=== PATIENT | female | born 1995 | race American Indian/Alaskan Native ===

== ENCOUNTER 2017-03-24 18:10 | Outpatient (CLI) | payer MEDICAID ==
[2017-03-24 19:01] VITALS: BP 132/68
--- NOTE | 2017-03-24 21:40 | Event Note ---
Date: 03/24/17 Patient presents to L&D at 39 weeks, 6 days gestation to rule out labor. Patient states she has been having contractions all day. She denies leaking of fluid or vaginal bleeding. Patient reports baby is moving well. Patient missed her last visit and has missed several appts. She also saw [facility] during this but did not follow up as she was supposed to do. She reports a history of elevated hemoglobin A1C during the but cannot recall any other problems with the . SVE per RN is 1/thick/posterior/cephalic. Irregular contractions. Patient is not in active labor at this time. BPP is 8/ 8. TANK is normal. Patient requests to be scheduled for induction of labor this week. Patient put on schedule for IOL this week. Advised patient she needs to keep her appt. at the office and also advised her to continue daily movement counting. Warning signs of late discussed with patient.
--- NOTE | 2017-03-25 07:43 | Ultrasound Report ---
LIMITED OB ULTRASOUND: well-being. Gestation: Lopez Position: Cephalic TANK = 11.3 cm Placenta: Anterior Placental Grade: 1 Heart Rate: 143 BPM Estimated age is 40 weeks. BIOPHYSICAL PROFILE: 2 - breathing movements 2 - movements 2 - posture and tone 2 - Qualitative amniotic fluid volume 8 - TOTAL SCORE OF POSSIBLE 8 Heart Rate (bpm) 143
== END 2017-03-24 21:29 | disposition home or self-care (01) ==
LOC: TRG 18:10
PROVIDERS: ATTEND Obstetrics & Gynecology
DX: O62.9 Abnormality of forces of labor, unspecified (principal); O48.0 Post-term pregnancy; Z3A.40 40 weeks gestation of pregnancy
CPT/HCPCS: 76815; 76819

== ENCOUNTER 2017-03-26 08:15 | Observation (INO) | payer MEDICAID ==
[2017-03-26 11:49] VITALS: BP 137/83
== END 2017-03-26 13:45 | disposition home or self-care (01) ==
LOC: LD 08:15 → INTOOBSV 08:15
PROVIDERS: ADMIT Obstetrics & Gynecology; ATTEND Obstetrics & Gynecology
DX: O48.0 Post-term pregnancy (principal); Z3A.40 40 weeks gestation of pregnancy
CPT/HCPCS: 59025; G0378; G0379

== ENCOUNTER 2017-04-01 10:03 | Inpatient (IN) | payer MEDICAID ==
[2017-04-01] MEDS ORDERED: BRETHINE IVP PRN (12:13)
[2017-04-01] MEDS ORDERED: MINERAL OIL PO PRN (12:13)
[2017-04-01] MEDS ORDERED: XYLOCAINE 2% INFILTRATI ONE (12:13)
[2017-04-01] MEDS ORDERED: ePHEDrine SULFATE IV PRN ×2 (12:13→15:57)
[2017-04-01] MEDS ORDERED: STADOL IV PRN (12:13)
[2017-04-01] MEDS ORDERED: BRETHINE SUB-Q PRN (12:29)
[2017-04-01] MEDS ORDERED: PITOCin/NS 30 UNIT/500ML 30 UNITS/500 ML BAG IV SCH (13:00)
[2017-04-01] MEDS: LACTATED RINGERS 1,000 ML IV SCH ×3 (13:07→19:34)
[2017-04-01] MEDS ORDERED: POLYCILLIN/NS 2 GM/100 ML 2 GM/100 ML BAG IV ONE (13:13)
[2017-04-01] MEDS: PITOCin/NS 30 UNIT/500ML 30 UNITS/500 ML BAG IV SCH (13:17)
[2017-04-01 13:31] LABS: Hematocrit 27.3 % (30.3-42.9); Hemoglobin 8.5 gm/dl (10.1-14.3); Mean Corpuscular HGB Conc 31 % (30-34); Mean Corpuscular Volume 70 fl (79-97); Platelet Count 190 K/mm3 (140-440); Red Blood Count 3.89 M/mm3 (3.65-5.03); Red Cell Distribution Width 16.5 % (13.2-15.2); White Blood Count 8.3 K/mm3 (4.5-11.0)
[2017-04-01 13:48] LABS: Mean Corpuscular Hemoglobin 22 pg (28-32)
--- NOTE | 2017-04-01 14:33 | History and Physical Report ---
History of Present Illness Date of examination: 04/01/17 Date of admission: 04/01/17 11:44 Chief complaint: Abdominal Pain History of present illness: Here with c/o painful contractions for the past 2 days associated with occasional spotting. She denies LOF and reports positive FMs. She started her care @ 23w4d and has only had 4 visits. Her is complicated by anemia and low vit D. She is on ferrous sulfate 325mg TID and vit D supplement. She was treated for BV and VVC at her 1st appt. She denies any abnormal vaginal symptoms today. 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 smear (11/30/16) Family/Genetic History: none Social history: single, lives with family - Obstetrical History Expected Date of Delivery: 03/25/17 Actual Gestation: 41 Week(s) 0 Day(s) : 4 Para: 3 Hx # Term Pregnancies: 0 Number of Pregnancies: 0 Spontaneous Abortions: 0 Induced : 0 Number of Living Children: 3 Medications and Allergies Allergies Allergy/AdvReac Type Severity Reaction Status Date / Time tomato [Tomato] Allergy Swelling Verified 04/13/13 14:33 Home Medications Medication Instructions Recorded Confirmed Last Taken Type Vit37/Iron/Folic Acid 1 each PO DAILY 12/14/13 04/01/17 1 Day Ago History [Prenata Chewable Tablet] ~03/31/17 Active Meds: Active Medications Butorphanol Tartrate (Stadol) 2 mg IV Q2H PRN PRN Reason: Pain , Severe (7-10) Ephedrine Sulfate (Ephedrine Sulfate) 10 mg IV Q2M PRN PRN Reason: Hypotension Lactated Ringer's (Lactated Ringers) 1,000 mls @ 125 mls/hr IV DIRECT YASMINE Last Admin: 04/01/17 13:07 Dose: 125 mls/hr Oxytocin/Sodium Chloride (Pitocin/Ns 20 Unit/1000ml Drip) 20 units in 1,000 mls @ 125 mls/hr IV DIRECT YASMINE Oxytocin/Sodium Chloride (Pitocin/Ns 30 Unit/500ml) 30 units in 500 mls @ 1 mls /hr IV TITR YASMINE; 1 MILLIUNITS/MIN PRN Reason: Protocol Last Titration: 04/01/17 14:04 Dose: 4 milliunits/min, 4 mls/hr Oxytocin/Sodium Chloride (Pitocin/Ns 30 Unit/500ml) 30 units in 500 mls @ 0 mls /hr IV TITR YASMINE; As Directed PRN Reason: Protocol Ampicillin Sodium (Polycillin/Ns 1 Gm/50 Ml) 1 gm in 50 mls @ 100 mls/hr IV Q4H YASMINE PRN Reason: Protocol Mineral Oil (Mineral Oil) 30 ml PO QHS PRN PRN Reason: Constipation Terbutaline Sulfate (Brethine) 0.25 mg SUB-Q ONCE PRN PRN Reason: Hyperstimulation/Hypertonicity Terbutaline Sulfate (Brethine) 0.25 mg IVP ONCE PRN PRN Reason: Hyperstimulation/Hypertonicity Review of Systems All systems: negative - Vital Signs Vital signs: Vital Signs Pulse Pulse Ox 91 H 99 04/01/17 10:27 04/01/17 10:27 Temp Pulse Resp BP Pulse Ox 98.5 F 83 20 126/72 100 04/01/17 13:09 04/01/17 14:24 04/01/17 13:09 04/01/17 14:17 04/01/17 14:24 - Physical Exam Breasts: Positive: deferred Cardiovascular: Regular rate, Normal S1, Normal S2 Lungs: Positive: Clear to auscultation, Normal air movement Abdomen: Positive: normal appearance, soft Genitourinary (Female): Positive: normal external genitalia, normal perenium Vulva: both: normal Vagina: Positive: normal moisture Uterus: Positive: normal size, normal contour Anus/Rectum: Positive: normal perianal skin Extremities: Positive: normal Deep Tendon Reflex Grade: Normal +2 - Obstetrical FHR: category 2 FHR comments: baseline 130, moderate variability with occasional minimal variability, accels present, no decels Uterine Contraction Monitor Mode: External Cervical Dilatation: 2.5 (per RN) Cervical Effacement Percentage: 70 (per RN) station: -3 (per RN) Uterine Contraction Frequency (min): irregular Results Result Diagrams: 04/01/17 12:55 Abnormal lab results 04/01/17 Range/Units 12:55 Hgb 8.5 L (10.1-14.3) gm/dl Hct 27.3 L (30.3-42.9) % MCV 70 L (79-97) fl MCH 22 L (28-32) pg RDW 16.5 H (13.2-15.2) % All other labs normal. Assessment and Plan A: 21yo G 4 P 3 0 0 3 @ 41 weeks 0 day by LMP Postdates Insufficient Care Latent Labor GBS positive Anemia of P: Admit for IOL with Pitocin Start antibiotics for GBS prophylaxis Anticipate vaginal delivery
[2017-04-01] MEDS ORDERED: fentaNYL-BUPIV 2 MCG/ML-0.125% 200 MCG/100 ML BAG EPIDURAL ONE (15:39)
[2017-04-01] MEDS ORDERED: NARCAN 2 MG/2 ML IV PRN (15:57)
--- NOTE | 2017-04-01 15:57 | Anesthesia Consultation ---
Anesthesia Consult and Med Hx Date of service: 04/01/17 - Airway Anesthetic Teeth Evaluation: Good ROM Head & Neck: Adequate Mental/Hyoid Distance: Adequate Mallampati Class: Class II Intubation Access Assessment: Probably Good - Pre-Operative Health Status ASA Pre-Surgery Classification: ASA2 Proposed Anesthetic Plan: Epidural, Spinal - Pulmonary Hx Asthma: No COPD: No Hx Pneumonia: No - Cardiovascular System Hx Hypertension: No - Central Nervous System Hx Seizures: No Hx Psychiatric Problems: No - Endocrine Hx Renal Disease: No Hx End Stage Renal Disease: No Hx Non-Insulin Dependent Diabetes: Yes (h/o GDM) Hx Hypothyroidism: No Hx Hyperthyroidism: No - Hematic Hx Anemia: Yes Hx Sickle Cell Disease: No - Other Systems Hx Alcohol Use: No
[2017-04-01] MEDS: fentaNYL-BUPIV 2 MCG/ML-0.125% 200 MCG/100 ML BAG EPIDURAL SCH (16:37)
[2017-04-01] MEDS: POLYCILLIN/NS 1 GM/50 ML 1 GM/50 ML BAG IV SCH ×2 (17:10→21:04)
--- NOTE | 2017-04-01 19:13 | Event Note ---
Date: 04/01/17 S: Pt in left lateral position. Pain well controlled. O: FHR baseline 130, minimal variability with periods of absent variability, positive scalp stimutaion, occ early & variable decels Ctxs q2-4mins SVE 6/90/-1/vtx/bbow AROM @ 16:35, light mec A: Category II FHR Active Labor Epidural in place P: IV fluid bolus, Oxygen via nonrebreather mask, position changes [id number], discontinue Pitocin Anticipate vaginal delivery
[2017-04-02] MEDS: fentaNYL-BUPIV 2 MCG/ML-0.125% 200 MCG/100 ML BAG EPIDURAL SCH (00:14)
[2017-04-02] MEDS ORDERED: XYLOCAINE 2% INFILTRATI ONE (00:50)
[2017-04-02] MEDS: POLYCILLIN/NS 1 GM/50 ML 1 GM/50 ML BAG IV SCH (01:00)
[2017-04-02] MEDS: PITOCin/NS 30 UNIT/500ML 30 UNITS/500 ML BAG IV SCH (01:27)
[2017-04-02] MEDS: PITOCin/NS 20 UNIT/1000ML DRIP 20 UNITS/1,000 ML BAG IV SCH ×2 (02:45→04:14)
[2017-04-02] MEDS ORDERED: ZOFRAN IV PRN (03:11)
[2017-04-02] MEDS ORDERED: LANSINOH TP PRN (03:11)
[2017-04-02] MEDS ORDERED: TYLENOL PO PRN (03:11)
[2017-04-02] MEDS ORDERED: DULCOLAX PR PRN (03:11)
[2017-04-02] MEDS ORDERED: TUCKS PAD TP PRN (03:11)
[2017-04-02] MEDS ORDERED: PHENERGAN PR PRN (03:11)
[2017-04-02] MEDS ORDERED: NORCO 5/325 PO PRN (03:11)
[2017-04-02] MEDS ORDERED: BENADRYL PO PRN (03:11)
[2017-04-02] MEDS ORDERED: PHENERGAN PO PRN (03:11)
[2017-04-02] MEDS ORDERED: MILK OF MAGNESIA PO PRN (03:11)
[2017-04-02] MEDS ORDERED: DIFLUCAN PO ONE (03:15)
--- NOTE | 2017-04-02 03:40 | Procedure Note ---
OB Delivery Note - Delivery Date of Delivery: 04/02/17 (02:45) Estimated blood loss: 200cc - Vaginal Delivery presentation: vertex Delivery position: OA Intrapartum events: meconium Delivery induction: oxytocin Delivery augmentation: rupture of membranes Delivery monitor: external FHT, external uterine Route of delivery: Delivery placenta: spontaneous Delivery cord: other (cord around body. Reduced after delivery) Episiotomy: none Delivery laceration: vaginal side wall (hemostatic) Anesthesia: epidural Delivery comments: of a less vigorous 8lbs 0oz female at 02:45 with NICU team in the room and Dr. Bey in attendance. Baby with a strong cry after mouth and nose suctioned with a bulb syringe and later dried. Baby placed [id number] to maternal abdomen. Cord clamping delayed x3 mins. Cord double-clamped & cut by a family member and was later taken to the warmer by a NICU cylinder steamer. Placenta spontaneously delivered @ 02:55. Fundal massage & IV Pitocin bolus initiated. Fundus F/ML/U-2. Small lochia noted. Cord blood collected. Left vaginal side wall abrasion noted. Was hemostatic so not repaired. Placenta intact and was discarded. Mom and baby in stable condition. - Infant A at 1 minute: 8 at 5 minutes: 9 Infant Gender: Female
[2017-04-02] MEDS ORDERED: SODIUM CHLORIDE FLUSH SYRINGE 10 ML IV NR (04:00)
[2017-04-02] MEDS: MOTRIN PO SCH ×3 (06:03→17:54)
[2017-04-02 06:25] LABS: Hematocrit 26.6 % (30.3-42.9); Hemoglobin 8.2 gm/dl (10.1-14.3); Mean Corpuscular HGB Conc 31 % (30-34); Mean Corpuscular Volume 73 fl (79-97); Platelet Count 168 K/mm3 (140-440); Red Blood Count 3.66 M/mm3 (3.65-5.03); Red Cell Distribution Width 16.5 % (13.2-15.2); White Blood Count 15.8 K/mm3 (4.5-11.0)
[2017-04-02 06:38] LABS: Mean Corpuscular Hemoglobin 22 pg (28-32)
[2017-04-02 06:47] LABS: Alanine Aminotransferase 9 units/L (7-56)
[2017-04-02 06:54] LABS: Lactate Dehydrogenase 191 units/L (91-180); Uric Acid 5.1 mg/dL (3.5-7.6)
[2017-04-02 08:58] LABS: Bacteria,Urine 1+ /HPF (Negative); Bilirubin,Urine NEG (Negative); Blood,Urine LG (Negative); Ketones,Urine NEG (Negative); Leukocyte Esterase,Urine MOD (Negative); Nitrite,Urine NEG (Negative); Urobilinogen,Urine < 2.0 mg/dL (<2.0)
[2017-04-02 16:03] LABS: Hematocrit 25.3 % (30.3-42.9); Hemoglobin 7.8 gm/dl (10.1-14.3)
[2017-04-03] MEDS: MOTRIN PO SCH ×4 (00:20→18:37)
[2017-04-03] MEDS ORDERED: INFED IM ONE (11:26)
[2017-04-03] MEDS ORDERED: DEPO-PROVERA (CONTRACEPTION) IM ONE (11:27)
--- NOTE | 2017-04-03 11:29 | Progress Note ---
Assessment and Plan A: PP Day #1 Asymptomatic Anemia P: Follow Routine orders Ferrous Sulfate 325mg PO TID; continue at home Infed 100mg IM x 1 dose Depo Provera prior to discharge D/C home in the AM RTO in 6 Weeks Subjective - Subjective Date of service: 04/03/17 Patient reports: appetite normal, voiding normally, pain well controlled, flatus , ambulating normally : doing well Objective - Vital Signs Latest vital signs: Vital Signs Temp Pulse Resp BP BP Pulse Ox 04/03/17 08:19 98.3 F 74 117/51 100 04/03/17 00:40 98.3 F 98 H 18 112/63 98 04/02/17 16:32 98.2 F 98 H 20 123/69 100 04/02/17 11:55 98.1 F 92 H 18 135/78 100 Intake and Output 04/02/17 04/03/17 04/03/17 22:59 06:59 14:59 Intake Total 480 120 Balance 480 120 Intake: Oral 480 120 Other: Total, Intake Amount 480 120 # Voids Void 1 1 - Exam Breasts: Present: normal Cardiovascular: Present: Regular rate Lungs: Present: Clear to auscultation, Normal air movement Abdomen: Present: normal appearance, soft, normal bowel sounds Uterus: Present: normal, firm, fundal height below umbilicus Extremities: Present: normal - Labs Labs: Abnormal lab results 04/02/17 Range/Units 15:51 Hgb 7.8 L (10.1-14.3) gm/dl Hct 25.3 L (30.3-42.9) %
--- NOTE | 2017-04-03 11:30 | Discharge Summary ---
Providers - Providers Date of Admission: 04/01/17 11:44 Date of discharge: 04/04/17 Attending physician: HALEIGH LAZAR MD Primary care physician: HALEIGH LAZAR MD Hospitalization Reason for admission: active labor Delivery: Episiotomy: none Laceration: none Other procedures: none complications: none Discharge diagnosis: IUP at term delivered [place] baby: female Condition at discharge: Good Disposition: DC-01 TO HOME OR SELFCARE Plan - Provider Discharge Summary Activity: routine, no sex for 6 weeks, no heavy lifting 4 weeks, no strenuous exercise Diet: routine Instructions: routine Additional instructions: [] Smoking cessation referral if applicable(refer to patient education folder for contact #) [] Refer to [facility] Booklet Call your doctor immediately for: * Fever > 100.5 * Heavy vaginal bleeding ( >1 pad per hour) * Severe persistent headache * Shortness of breath * Reddened, hot, painful area to leg or breast * Drainage or odor from incision. * Keep incision clean and dry at all times and follow doctor's instructions regarding bathing/showering - Follow up plan Follow up: HALEIGH LAZAR MD [Primary Care Provider] - 6 Weeks
[2017-04-03] MEDS: FEOSOL PO SCH ×2 (13:55→21:33)
[2017-04-04] MEDS: MOTRIN PO SCH ×3 (05:32→13:44)
[2017-04-04] MEDS: FEOSOL PO SCH (10:29)
[2017-04-04 15:54] VITALS: BP 121/78
== END 2017-04-04 15:30 | disposition home or self-care (01) | DRG 775 ==
LOC: TRG 10:03 → LD 11:44 → OB 04-02 06:29
PROVIDERS: ADMIT Obstetrics & Gynecology; ATTEND Obstetrics & Gynecology
PROC: 10E0XZZ Delivery of Products of Conception, External Approach (ICD-10-PCS; principal; 2017-04-02)
PROC: 3E033VJ Introduction of Other Hormone into Peripheral Vein, Percutaneous Approach (ICD-10-PCS; 2017-04-02)
PROC: 3E0R3BZ Introduction of Anesthetic Agent into Spinal Canal, Percutaneous Approach (ICD-10-PCS; 2017-04-02)
PROC: 00HU33Z Insertion of Infusion Device into Spinal Canal, Percutaneous Approach (ICD-10-PCS; 2017-04-02)
DX: O48.0 Post-term pregnancy (principal); O99.824 Streptococcus B carrier state complicating childbirth; O99.02 Anemia complicating childbirth; Z3A.41 41 weeks gestation of pregnancy; Z37.0 Single live birth; Z91.018 Allergy to other foods; D64.9 Anemia, unspecified; O77.0 Labor and delivery complicated by meconium in amniotic fluid; O69.89X0 Labor and delivery complicated by other cord complications, not applicable or unspecified; O71.4 Obstetric high vaginal laceration alone
CPT/HCPCS: 36415; 81001; 82565; 83615; 84450; 84460; 84550; 85014; 85018; 85027; 86592; 86850; 86900; 86901; J0290; J0595; J1750; J2590; J7120

== ENCOUNTER 2018-02-14 09:22 | Emergency (ER) | payer MEDICAID ==
--- NOTE | 2018-02-14 10:22 | Emergency Department Report ---
ED Female HPI - General Chief complaint: Abdominal Pain Stated complaint: ABD PAIN Time Seen by Provider: 02/14/18 10:03 Source: patient Mode of arrival: Ambulatory Limitations: No Limitations - History of Present Illness Initial comments: 22-year-old female presents to ED with abdominal pain. Patient states pain began last night, located in suprapubic area. Patient reports white vaginal discharge with a slight odor. Patient denies dysuria, urinary frequency, hematuria. MD Complaint: vaginal discharge -: Last night Location: suprapubic Radiation: non-radiating Severity: mild Quality: cramping Consistency: intermittent Improves with: none Worsens with: none Associated Symptoms: vaginal discharge, abdominal pain. denies: nausea/vomiting , fever/chills, dysuria, hematuria - Related Data Home Medications Medication Instructions Recorded Confirmed Last Taken Vit37/Iron/Folic Acid 1 each PO DAILY 12/14/13 04/01/17 1 Day Ago [Prenata Chewable Tablet] ~03/31/17 Previous Rx's Medication Instructions Recorded Last Taken Type Naproxen [Naprosyn] 500 mg PO BID PRN #20 tablet 02/14/18 Unknown Rx Allergies Allergy/AdvReac Type Severity Reaction Status Date / Time tomato [Tomato] Allergy Swelling Verified 02/14/18 09:32 ED Review of Systems ROS: Stated complaint: ABD PAIN Other details as noted in HPI Comment: All other systems reviewed and negative Constitutional: denies: fever Gastrointestinal: abdominal pain. denies: nausea, vomiting Genitourinary: discharge. denies: dysuria, frequency, hematuria ED Past Medical Hx - Past Medical History Previous Medical History?: No Hx Hypertension: No Hx Congestive Heart Failure: No Hx Diabetes: No Hx Deep Vein Thrombosis: No Hx Renal Disease: No Hx Sickle Cell Disease: No Hx Seizures: No Hx Asthma: No Hx COPD: No Hx HIV: No - Surgical History Additional Surgical History: hernia repair - Social History Smoking Status: Never Smoker Substance Use Type: None - Medications Home Medications: Home Medications Medication Instructions Recorded Confirmed Last Taken Type Vit37/Iron/Folic Acid 1 each PO DAILY 12/14/13 04/01/17 1 Day Ago History [Prenata Chewable Tablet] ~03/31/17 Naproxen [Naprosyn] 500 mg PO BID PRN #20 tablet 02/14/18 Unknown Rx ED Physical Exam - General Limitations: No Limitations General appearance: alert, in no apparent distress - Head Head exam: Present: atraumatic, normocephalic - Eye Eye exam: Present: normal appearance - ENT ENT exam: Present: mucous membranes moist - Neck Neck exam: Present: normal inspection - Respiratory Respiratory exam: Present: normal lung sounds bilaterally. Absent: respiratory distress - Cardiovascular Cardiovascular Exam: Present: regular rate, normal rhythm - GI/Abdominal GI/Abdominal exam: Present: soft. Absent: tenderness - External exam: Present: normal external exam Speculum exam: Present: vaginal discharge (yellow), cervical discharge. Absent : vaginal bleeding, foreign body Bi-manual exam: Present: normal bi-manual exam. Absent: cervical motion tendernes - Extremities Exam Extremities exam: Present: normal inspection - Neurological Exam Neurological exam: Present: alert, oriented X3 - Psychiatric Psychiatric exam: Present: normal affect, normal mood - Skin Skin exam: Present: warm, dry, intact, normal color ED Course Vital Signs 02/14/18 02/14/18 09:32 13:12 Temperature 99 F 98.4 F Pulse Rate 82 78 Respiratory 18 19 Rate Blood Pressure 129/50 Blood Pressure 122/72 [Right] O2 Sat by Pulse 100 99 Oximetry ED Medical Decision Making - Differential Diagnosis UTI, , vaginitis, cervicitis, PID Critical care attestation.: If time is entered above; I have spent that time in minutes in the direct care of this critically ill patient, excluding procedure time. ED Disposition Clinical Impression: Cervicitis Disposition: DC-01 TO HOME OR SELFCARE Is pt being admited?: No Condition: Stable Instructions: Cervicitis (ED) Prescriptions: Naproxen [Naprosyn] 500 mg PO BID PRN #20 tablet PRN Reason: pain Referrals: [facility] [Outside] - 3-5 Days BERNARDINO LU [Staff Physician] - 3-5 Days [facility] [Provider Group] - 3-5 Days [facility] [Outside] - 3-5 Days Forms: STI Treatment and Prevention Time of Disposition: 11:54
[2018-02-14 10:48] LABS: Bilirubin,Urine NEG (Negative); Blood,Urine SM (Negative); Color,Urine Yellow (Yellow); Mucus,Urine 3+ /HPF; Urobilinogen,Urine < 2.0 mg/dL (<2.0)
[2018-02-14 10:49] LABS: HCG Qualitative,Urine Negative (Negative)
[2018-02-14] MEDS ORDERED: ROCEPHIN IM ONE (11:27)
[2018-02-14] MEDS ORDERED: ZITHROMAX PO ONE (11:27)
[2018-02-14] MEDS ORDERED: XYLOCAINE 1% MPF 5 mL INFILTRATI ONE (11:27)
[2018-02-14 13:15] VITALS: BP 122/72
== END 2018-02-14 13:12 | disposition home or self-care (01) ==
LOC: ED 09:22
DX: N72 Inflammatory disease of cervix uteri (principal); Z91.018 Allergy to other foods
CPT/HCPCS: 81001; 81025; 87210; 87591; 96372; 99284; J0696

== ENCOUNTER 2018-11-24 15:08 | Emergency (ER) | payer MEDICAID, OTHER ==
[2018-11-24] MEDS ORDERED: IBUPROFEN PO ONE (16:32)
--- NOTE | 2018-11-24 18:06 | Emergency Department Report ---
ED General Adult HPI - General Chief complaint: Weakness Stated complaint: PASSED OUT/VAGINAL IRRITATION Time Seen by Provider: 11/24/18 16:31 Source: patient Mode of arrival: Ambulatory Limitations: No Limitations - History of Present Illness Initial comments: 23-year-old female comes in complaining of vaginal irritation 2 days. She denies any vaginal bleeding vaginal discharge. Last menstrual period was 10/27/2018. She is 4 para 4. Onset/Timin -: days(s) - Related Data Home Medications Medication Instructions Recorded Confirmed Last Taken Vit37/Iron/Folic Acid 1 each PO DAILY 12/14/13 04/01/17 1 Day Ago [Prenata Chewable Tablet] ~03/31/17 Previous Rx's Medication Instructions Recorded Last Taken Type Naproxen [Naprosyn] 500 mg PO BID PRN #20 tablet 02/14/18 Unknown Rx Sulfamethoxazole/Trimethoprim 1 each PO BID #10 tablet 04/04/18 Unknown Rx [Bactrim DS TAB] metroNIDAZOLE [Metronidazole] 500 mg PO BID #14 tablet 04/04/18 Unknown Rx Acyclovir [Zovirax Tab] 400 mg PO Q8H #21 tab 11/24/18 Unknown Rx Nitrofurantoin [place]/M-Cryst 100 mg PO Q12HR #20 capsule 11/24/18 Unknown Rx [Macrobid CAP] Vit-Fe Fumar-FA [ 1 tab PO QDAY #90 tablet 11/24/18 Unknown Rx Vitamin] Allergies Allergy/AdvReac Type Severity Reaction Status Date / Time tomato [Tomato] Allergy Swelling Verified 11/24/18 15:10 ED Review of Systems ROS: Stated complaint: PASSED OUT/VAGINAL IRRITATION Other details as noted in HPI ED Past Medical Hx - Past Medical History Hx Hypertension: No Hx Congestive Heart Failure: No Hx Diabetes: No Hx Deep Vein Thrombosis: No Hx Renal Disease: No Hx Sickle Cell Disease: No Hx Seizures: No Hx Asthma: No Hx COPD: No Hx HIV: No - Surgical History Additional Surgical History: hernia repair - Social History Smoking Status: Never Smoker Substance Use Type: None - Medications Home Medications: Home Medications Medication Instructions Recorded Confirmed Last Taken Type Vit37/Iron/Folic Acid 1 each PO DAILY 12/14/13 04/01/17 1 Day Ago History [Prenata Chewable Tablet] ~03/31/17 Naproxen [Naprosyn] 500 mg PO BID PRN #20 tablet 02/14/18 Unknown Rx Sulfamethoxazole/Trimethoprim 1 each PO BID #10 tablet 04/04/18 Unknown Rx [Bactrim DS TAB] metroNIDAZOLE [Metronidazole] 500 mg PO BID #14 tablet 04/04/18 Unknown Rx Acyclovir [Zovirax Tab] 400 mg PO Q8H #21 tab 11/24/18 Unknown Rx Nitrofurantoin [place]/M-Cryst 100 mg PO Q12HR #20 capsule 11/24/18 Unknown Rx [Macrobid CAP] Vit-Fe Fumar-FA [ 1 tab PO QDAY #90 tablet 11/24/18 Unknown Rx Vitamin] ED Physical Exam - General Limitations: No Limitations General appearance: alert, in no apparent distress - Head Head exam: Present: atraumatic, normocephalic - ENT ENT exam: Present: mucous membranes moist - External exam: Present: swelling, lesions - Back Exam Back exam: Present: normal inspection - Neurological Exam Neurological exam: Present: alert, oriented X3, normal gait - Psychiatric Psychiatric exam: Present: normal affect, normal mood ED Course Vital Signs 11/24/18 11/24/18 15:42 16:42 Temperature 100.0 F H Pulse Rate 107 H Respiratory 16 18 Rate Blood Pressure 118/70 O2 Sat by Pulse 100 Oximetry ED Medical Decision Making - Medical Decision Making 23-year-old female comes in complaining of vaginal irritation 2 days. She denies any vaginal bleeding vaginal discharge. Last menstrual period was 10/27/2018. She is 4 para 4. Patient has a positive test and positive urinary tract infection. Patient will be placed on Macrobid acyclovir for concern for herpes and vitamins for positive test. Patient referred to [facility]. Critical care attestation.: If time is entered above; I have spent that time in minutes in the direct care of this critically ill patient, excluding procedure time. ED Disposition Clinical Impression: Lesion of labia, Positive test UTI (urinary tract infection) Qualifiers: Urinary tract infection type: site unspecified Hematuria presence: without hematuria Qualified Code(s): N39.0 - Urinary tract infection, site not specified Disposition: - TO HOME OR SELFCARE Is pt being admited?: No Does the pt Need Aspirin: No Condition: Stable Instructions: Genital Herpes Simplex (ED) Additional Instructions: Please complete anti-viral medication as prescribed. It's very important for her to follow up with her primary care provider as I recommend being screened for herpes 1 and 2. Please take ibuprofen for pain management. Prescriptions: Nitrofurantoin [place]/M-Cryst [Macrobid CAP] 100 mg PO Q12HR #20 capsule Vit-Fe Fumar-FA [ Vitamin] 1 tab PO QDAY #90 tablet Acyclovir [Zovirax Tab] 400 mg PO Q8H #21 tab Referrals: SUPRIYA TIWARI MD [Primary Care Provider] - 3-5 Days
[2018-11-24 18:14] LABS: Bacteria,Urine 1+ /HPF (Negative); Bilirubin,Urine NEG (Negative); Blood,Urine MOD (Negative); Color,Urine Yellow (Yellow); Mucus,Urine 3+ /HPF; Urobilinogen,Urine < 2.0 mg/dL (<2.0)
[2018-11-24 18:18] LABS: HCG Qualitative,Urine Positive (Negative)
[2018-11-24 19:08] VITALS: BP 108/78
== END 2018-11-24 19:16 | disposition home or self-care (01) ==
LOC: ED 15:08
DX: O23.41 Unspecified infection of urinary tract in pregnancy, first trimester (principal); Z3A.01 Less than 8 weeks gestation of pregnancy
CPT/HCPCS: 81001; 81025; 87086; 87210; 87591

== ENCOUNTER 2018-12-05 16:41 | Emergency (ER) | payer OTHER ==
--- NOTE | 2018-12-05 18:11 | Event Note ---
ED Screening Note Date of service: 12/05/18 Time: 18:06 ED Screening Note: This is a 23 y.o. F. that presents to the ER with abdominal pain since last night. Recent positive test. LMP 10/10/18, A1 This initial assessment/diagnostic orders/clinical plan/treatment(s) is/are subject to change based on patients health status, clinical progression and re- assessment by fellow clinical providers in the ED. Further treatment and workup at subsequent clinical providers discretion. Patient/guardian urged not to elope from the ED as their condition may be serious if not clinically assessed and managed. Initial orders include: Labs and OB US
--- NOTE | 2018-12-05 18:53 | Emergency Department Report ---
ED Abdominal Pain HPI - General Chief Complaint: Abdominal Pain Stated Complaint: /STOMACH PAIN Time Seen by Provider: 12/05/18 18:06 Source: patient Mode of arrival: Ambulatory Limitations: No Limitations - History of Present Illness Initial Comments: Patient is a 23-year-old female presents to the emergency room with generalized abdominal pain that began last night. She describes it as a cramping sensation. The patient states she is currently . Her last menstrual cycle was in the middle of September. She does not have an CHILD PROTECTIVE INVESTIGATOR. She denies any vaginal bleeding, nausea, vomiting, fever, dysuria. she does not report any vaginal di scharge or vaginal complaints. She denies any past medical history, allergies to medications, complications during her other pregnancies. /P:4/A:1. - Related Data Home Medications Medication Instructions Recorded Confirmed Last Taken Vit37/Iron/Folic Acid 1 each PO DAILY 12/14/13 04/01/17 1 Day Ago [Prenata Chewable Tablet] ~03/31/17 Previous Rx's Medication Instructions Recorded Last Taken Type Naproxen [Naprosyn] 500 mg PO BID PRN #20 tablet 02/14/18 Unknown Rx Sulfamethoxazole/Trimethoprim 1 each PO BID #10 tablet 04/04/18 Unknown Rx [Bactrim DS TAB] metroNIDAZOLE [Metronidazole] 500 mg PO BID #14 tablet 04/04/18 Unknown Rx Acyclovir [Zovirax Tab] 400 mg PO Q8H #21 tab 11/24/18 Unknown Rx Nitrofurantoin Glynn/M-Cryst 100 mg PO Q12HR #20 capsule 11/24/18 Unknown Rx [Macrobid CAP] Vit-Fe Fumar-FA [ 1 tab PO QDAY #90 tablet 11/24/18 Unknown Rx Vitamin] Allergies Allergy/AdvReac Type Severity Reaction Status Date / Time tomato [Tomato] Allergy Swelling Verified 12/05/18 17:13 ED Review of Systems ROS: Stated complaint: /STOMACH PAIN Other details as noted in HPI Comment: All other systems reviewed and negative ED Past Medical Hx - Past Medical History Hx Hypertension: No Hx Congestive Heart Failure: No Hx Diabetes: No Hx Deep Vein Thrombosis: No Hx Renal Disease: No Hx Sickle Cell Disease: No Hx Seizures: No Hx Asthma: No Hx COPD: No Hx HIV: No - Surgical History Additional Surgical History: hernia repair - Social History Smoking Status: Never Smoker Substance Use Type: None - Medications Home Medications: Home Medications Medication Instructions Recorded Confirmed Last Taken Type Vit37/Iron/Folic Acid 1 each PO DAILY 12/14/13 04/01/17 1 Day Ago History [Prenata Chewable Tablet] ~03/31/17 Naproxen [Naprosyn] 500 mg PO BID PRN #20 tablet 02/14/18 Unknown Rx Sulfamethoxazole/Trimethoprim 1 each PO BID #10 tablet 04/04/18 Unknown Rx [Bactrim DS TAB] metroNIDAZOLE [Metronidazole] 500 mg PO BID #14 tablet 04/04/18 Unknown Rx Acyclovir [Zovirax Tab] 400 mg PO Q8H #21 tab 11/24/18 Unknown Rx Nitrofurantoin Glynn/M-Cryst 100 mg PO Q12HR #20 capsule 11/24/18 Unknown Rx [Macrobid CAP] Vit-Fe Fumar-FA [ 1 tab PO QDAY #90 tablet 11/24/18 Unknown Rx Vitamin] ED Physical Exam - General Limitations: No Limitations General appearance: alert, in no apparent distress - Head Head exam: Present: atraumatic, normocephalic - Eye Eye exam: Present: normal appearance - ENT ENT exam: Present: mucous membranes moist - Respiratory Respiratory exam: Present: normal lung sounds bilaterally. Absent: respiratory distress, wheezes, rales, rhonchi, stridor, chest wall tenderness, accessory muscle use, decreased breath sounds, prolonged expiratory - Cardiovascular Cardiovascular Exam: Present: regular rate, normal rhythm, normal heart sounds. Absent: systolic murmur, diastolic murmur, rubs, gallop - GI/Abdominal GI/Abdominal exam: Present: soft, normal bowel sounds. Absent: tenderness, guarding, rebound, rigid - Neurological Exam Neurological exam: Present: alert, oriented X3 - Psychiatric Psychiatric exam: Present: normal affect, normal mood - Skin Skin exam: Present: warm, dry, intact ED Course Vital Signs 12/05/18 12/05/18 18:07 21:23 Temperature 98.8 F Pulse Rate 92 H 78 Respiratory 16 16 Rate Blood Pressure 123/72 Blood Pressure 124/54 [Right] O2 Sat by Pulse 92 100 Oximetry ED Medical Decision Making - Lab Data Result diagrams: 12/05/18 19:43 12/05/18 19:43 Lab Results 12/05/18 12/05/1812/05/19 Range/Units 18:51 19:43 19:43 WBC 7.0 (4.5-11.0) K/mm3 RBC 3.83 (3.65-5.03) M/mm3 Hgb 9.0 L (10.1-14.3) gm/dl Hct 28.2 L (30.3-42.9) % MCV 74 L (79-97) fl MCH 23 L (28-32) pg MCHC 32 (30-34) % RDW 16.5 H (13.2-15.2) % Plt Count 251 (140-440) K/mm3 Lymph % (Auto) 31.2 (13.4-35.0) % Glynn % (Auto) 7.3 (0.0-7.3) % Eos % (Auto) 3.0 (0.0-4.3) % Baso % (Auto) 1.0 (0.0-1.8) % Lymph # 2.2 (1.2-5.4) K/mm3 Glynn # 0.5 (0.0-0.8) K/mm3 Eos # 0.2 (0.0-0.4) K/mm3 Baso # 0.1 (0.0-0.1) K/mm3 Seg Neutrophils % 57.5 (40.0-70.0) % Seg Neutrophils # 4.1 (1.8-7.7) K/mm3 Sodium (137-145) mmol/L Potassium (3.6-5.0) mmol/L Chloride (98-107) mmol/L Carbon Dioxide (22-30) mmol/L Anion Gap mmol/L BUN (7-17) mg/dL Creatinine (0.7-1.2) mg/dL Estimated GFR ml/min BUN/Creatinine Ratio % Glucose (65-100) mg/dL Calcium (8.4-10.2) mg/dL Total Bilirubin (0.1-1.2) mg/dL AST (5-40) units/L ALT (7-56) units/L Alkaline Phosphatase (35-129) units/L Total Protein (6.3-8.2) g/dL Albumin (3.9-5) g/dL Albumin/Globulin Ratio % Lipase (13-60) units/L HCG, Quant 67439 H (0-4) mIU/mL Urine Color Yellow (Yellow) Urine Turbidity Slightly-cloudy (Clear) Urine pH 6.0 (5.0-7.0) Ur Specific [place] 1.033 H (1.003-1.030) Urine Protein 30 mg/dl (Negative) mg/dL Urine Glucose (UA) Neg (Negative) mg/dL Urine Ketones Neg (Negative) mg/dL Urine Blood Neg (Negative) Urine Nitrite Neg (Negative) Urine Bilirubin Neg (Negative) Urine Urobilinogen < 2.0 (<2.0) mg/dL Ur Leukocyte Esterase Sm (Negative) Urine WBC (Auto) 6.0 (0.0-6.0) /HPF Urine RBC (Auto) 12.0 (0.0-6.0) /HPF U Epithel Cells (Auto) 12.0 (0-13.0) /HPF Urine Mucus 3+ /HPF 12/05/18 Range/Units 19:43 WBC (4.5-11.0) K/mm3 RBC (3.65-5.03) M/mm3 Hgb (10.1-14.3) gm/dl Hct (30.3-42.9) % MCV (79-97) fl MCH (28-32) pg MCHC (30-34) % RDW (13.2-15.2) % Plt Count (140-440) K/mm3 Lymph % (Auto) (13.4-35.0) % Glynn % (Auto) (0.0-7.3) % Eos % (Auto) (0.0-4.3) % Baso % (Auto) (0.0-1.8) % Lymph # (1.2-5.4) K/mm3 Glynn # (0.0-0.8) K/mm3 Eos # (0.0-0.4) K/mm3 Baso # (0.0-0.1) K/mm3 Seg Neutrophils % (40.0-70.0) % Seg Neutrophils # (1.8-7.7) K/mm3 Sodium 136 L (137-145) mmol/L Potassium 3.3 L (3.6-5.0) mmol/L Chloride 101.8 (98-107) mmol/L Carbon Dioxide 23 (22-30) mmol/L Anion Gap 15 mmol/L BUN 10 (7-17) mg/dL Creatinine 0.5 L (0.7-1.2) mg/dL Estimated GFR > 60 ml/min BUN/Creatinine Ratio 20 % Glucose 119 H (65-100) mg/dL Calcium 8.8 (8.4-10.2) mg/dL Total Bilirubin < 0.20 (0.1-1.2) mg/dL AST 17 (5-40) units/L ALT 13 (7-56) units/L Alkaline Phosphatase 59 (35-129) units/L Total Protein 7.7 (6.3-8.2) g/dL Albumin 3.8 L (3.9-5) g/dL Albumin/Globulin Ratio 1.0 % Lipase 30 (13-60) units/L HCG, Quant (0-4) mIU/mL Urine Color (Yellow) Urine Turbidity (Clear) Urine pH (5.0-7.0) Ur Specific [place] (1.003-1.030) Urine Protein (Negative) mg/dL Urine Glucose (UA) (Negative) mg/dL Urine Ketones (Negative) mg/dL Urine Blood (Negative) Urine Nitrite (Negative) Urine Bilirubin (Negative) Urine Urobilinogen (<2.0) mg/dL Ur Leukocyte Esterase (Negative) Urine WBC (Auto) (0.0-6.0) /HPF Urine RBC (Auto) (0.0-6.0) /HPF U Epithel Cells (Auto) (0-13.0) /HPF Urine Mucus /HPF - Radiology Data Radiology results: report reviewed ULTRASOUND OBSTETRIC INDICATION / CLINICAL INFORMATION: abdominal pain, +, . Clinical Gestational Age (GA): TECHNIQUE: Transabdominal and Transvaginal. COMPARISON: None available. FINDINGS: GESTATIONAL SAC: Well-defined oval shape and intrauterine in location. Diameter 10.8 mm. YOLK SAC: No significant abnormality. EMBRYO/FETUS: Not identified. ADNEXA: No significant abnormality. FREE FLUID: Trace. ADDITIONAL FINDINGS: None. IMPRESSION: 1. Viable intrauterine with estimated sonographic age of 5 weeks 6 days. Absence of an embryo for a gestational sac of this size is consistent with early . Signer Name: Joe Amador MD Signed: 12/05/2018 7:36 PM Workstation Name: [email or web address] Transcribed By: HERSON Dictated By: Joe Amador MD Electronically Authenticated By: Joe Amador MD Signed Date/Time: 12/05/181935 - Medical Decision Making Patient is a 23-year-old female presents to the emergency room with generalized abdominal pain that began last night. She describes it as a cramping sensation. The patient states she is currently . Her last menstrual cycle was in the middle of September. She does not have an CHILD PROTECTIVE INVESTIGATOR. She denies any vaginal bleeding, nausea, vomiting, fever, dysuria. she does not report any vaginal discharge or vaginal complaints. She denies any past medical history, allergies to medications, complications during her other pregnancies. /P:4/A:1. VSS. labs with mild anemia otherwise stable, advised pt to please take her daily [place] [address]. UA is stable. OB US shows 1. Viable intrauterine with estimated sonographic age of 5 weeks 6 days. Absence of an embryo for a gestational sac of this size is consistent with early . advised pt to Please continue taking your daily vitamin. drink plenty of water. may take Tylenol for any discomfort. follow up with an CHILD PROTECTIVE INVESTIGATOR in the next 2-3 days to receive care. pt given list of several CHILD PROTECTIVE INVESTIGATOR in the surrounding area. Return to the emergency room for any new or worsening symptoms. - Differential Diagnosis IUP, UTI, spontaneous , placenta previa/accretia, round ligament Critical care attestation.: If time is entered above; I have spent that time in minutes in the direct care of this critically ill patient, excluding procedure time. ED Disposition Clinical Impression: Abdominal pain Qualifiers: Abdominal location: generalized Qualified Code(s): R10.84 - Generalized abdominal pain Qualifiers: Weeks of gestation: less than 8 weeks Qualified Code(s): Z3A.01 - Less than 8 weeks gestation of Disposition: DC-01 TO HOME OR SELFCARE Is pt being admited?: No Does the pt Need Aspirin: No Condition: Stable Instructions: Abdominal Pain in (ED) Additional Instructions: Please continue taking your daily vitamin. drink plenty of water. may take Tylenol for any discomfort. follow up with an CHILD PROTECTIVE INVESTIGATOR in the next 2-3 days to receive care. Return to the emergency room for any new or worsening symptoms. Referrals: SUPRIYA TIWARI MD [Primary Care Provider] - 2-3 Days [facility] [Provider Group] - 2-3 Days [facility] [Provider Group] - 2-3 Days [facility] [Provider Group] - 2-3 Days Time of Disposition: 21:00 Print Language: GREEK
[2018-12-05 19:06] LABS: Bilirubin,Urine NEG (Negative); Blood,Urine NEG (Negative); Color,Urine Yellow (Yellow); Mucus,Urine 3+ /HPF; Urobilinogen,Urine < 2.0 mg/dL (<2.0)
--- NOTE | 2018-12-05 19:41 | Ultrasound Report ---
ULTRASOUND OBSTETRIC INDICATION / CLINICAL INFORMATION: abdominal pain, +, . Clinical Gestational Age (GA): TECHNIQUE: Transabdominal and Transvaginal. COMPARISON: None available. FINDINGS: GESTATIONAL SAC: Well-defined oval shape and intrauterine in location. Diameter 10.8 mm. YOLK SAC: No significant abnormality. EMBRYO/FETUS: Not identified. ADNEXA: No significant abnormality. FREE FLUID: Trace. ADDITIONAL FINDINGS: None. IMPRESSION: 1. Viable intrauterine with estimated sonographic age of 5 weeks 6 days. Absence of an embr yo for a gestational sac of this size is consistent with early . Signer Name: Joe Amador MD Signed: 12/05/2018 7:36 PM Workstation Name: [id number]
[2018-12-05 20:02] LABS: Basophils # (Auto) 0.1 K/mm3 (0.0-0.1); Eosinophils # (Auto) 0.2 K/mm3 (0.0-0.4); Hematocrit 28.2 % (30.3-42.9); Lymphocytes # (Auto) 2.2 K/mm3 (1.2-5.4); Lymphocytes % (Auto) 31.2 % (13.4-35.0); Mean Corpuscular HGB Conc 32 % (30-34); Mean Corpuscular Volume 74 fl (79-97); Monocytes # (Auto) 0.5 K/mm3 (0.0-0.8); Monocytes % (Auto) 7.3 % (0.0-7.3); Platelet Count 251 K/mm3 (140-440); Red Blood Count 3.83 M/mm3 (3.65-5.03); Red Cell Distribution Width 16.5 % (13.2-15.2)
[2018-12-05 20:23] LABS: Alanine Aminotransferase 13 units/L (7-56); Albumin 3.8 g/dL (3.9-5); BUN/Creatinine Ratio 20; Blood Urea Nitrogen 10 mg/dL (7-17); Calcium 8.8 mg/dL (8.4-10.2); Hemolysis Index 4
[2018-12-05 21:28] VITALS: BP 124/54
== END 2018-12-05 21:26 | disposition home or self-care (01) ==
LOC: ED 16:41
DX: O26.891 Other specified pregnancy related conditions, first trimester (principal); Z3A.01 Less than 8 weeks gestation of pregnancy; Z91.018 Allergy to other foods; Z79.899 Other long term (current) drug therapy; Z98.890 Other specified postprocedural states
CPT/HCPCS: 36415; 76801; 76817; 80053; 81001; 83690; 84702; 85025; 99284

== ENCOUNTER 2018-12-13 12:25 | Emergency (ER) | payer OTHER ==
--- NOTE | 2018-12-13 13:54 | Emergency Department Report ---
ED General Adult HPI - General Chief complaint: Abdominal Pain Stated complaint: ABD PAIN Time Seen by Provider: 12/13/18 13:39 Source: patient Mode of arrival: Ambulatory Limitations: No Limitations - History of Present Illness Initial comments: Patient is 23 years old female 5 para 4 at 6 week gestation. Patient presented to the ER stating that she is having abdominal pain for the last 2 days and patient also stating that she has a vaginal rash that similar to the outbreak that she had 2 month ago for which she was diagnosed with habitus and she was given acyclovir. Patient is refusing exam and when questioned more about the abdominal pain she stated that she is here only for the rash and denied abdominal pain and stated that her symptom is similar to when she was here one week ago for which she had an ultrasound which came back normal for intrauterine . Patient also denied any vaginal bleeding, chest pain, shortness of breath, nausea or vomiting. - Related Data Home Medications Medication Instructions Recorded Confirmed Last Taken Vit37/Iron/Folic Acid 1 each PO DAILY 12/14/13 04/01/17 1 Day Ago [Prenata Chewable Tablet] ~03/31/17 Previous Rx's Medication Instructions Recorded Last Taken Type Naproxen [Naprosyn] 500 mg PO BID PRN #20 tablet 02/14/18 Unknown Rx Sulfamethoxazole/Trimethoprim 1 each PO BID #10 tablet 04/04/18 Unknown Rx [Bactrim DS TAB] metroNIDAZOLE [Metronidazole] 500 mg PO BID #14 tablet 04/04/18 Unknown Rx Acyclovir [Zovirax Tab] 400 mg PO Q8H #21 tab 11/24/18 Unknown Rx Nitrofurantoin Rock/M-Cryst 100 mg PO Q12HR #20 capsule 11/24/18 Unknown Rx [Macrobid CAP] Vit-Fe Fumar-FA [ 1 tab PO QDAY #90 tablet 11/24/18 Unknown Rx Vitamin] Allergies Allergy/AdvReac Type Severity Reaction Status Date / Time tomato [Tomato] Allergy Swelling Verified 12/13/18 12:36 ED Review of Systems ROS: Stated complaint: ABD PAIN Other details as noted in HPI Comment: All other systems reviewed and negative Constitutional: denies: chills, fever Respiratory: denies: cough Gastrointestinal: denies: abdominal pain, nausea, vomiting Skin: lesions ED Past Medical Hx - Past Medical History Hx Hypertension: No Hx Congestive Heart Failure: No Hx Diabetes: No Hx Deep Vein Thrombosis: No Hx Renal Disease: No Hx Sickle Cell Disease: No Hx Seizures: No Hx Asthma: No Hx COPD: No Hx HIV: No - Surgical History Additional Surgical History: hernia repair - Social History Smoking Status: Unknown if ever smoked Substance Use Type: None - Medications Home Medications: Home Medications Medication Instructions Recorded Confirmed Last Taken Type Vit37/Iron/Folic Acid 1 each PO DAILY 12/14/13 04/01/17 1 Day Ago History [Prenata Chewable Tablet] ~03/31/17 Naproxen [Naprosyn] 500 mg PO BID PRN #20 tablet 02/14/18 Unknown Rx Sulfamethoxazole/Trimethoprim 1 each PO BID #10 tablet 04/04/18 Unknown Rx [Bactrim DS TAB] metroNIDAZOLE [Metronidazole] 500 mg PO BID #14 tablet 04/04/18 Unknown Rx Acyclovir [Zovirax Tab] 400 mg PO Q8H #21 tab 11/24/18 Unknown Rx Nitrofurantoin Rock/M-Cryst 100 mg PO Q12HR #20 capsule 11/24/18 Unknown Rx [Macrobid CAP] Vit-Fe Fumar-FA [ 1 tab PO QDAY #90 tablet 11/24/18 Unknown Rx Vitamin] ED Physical Exam - General Limitations: No Limitations General appearance: alert, in no apparent distress - Head Head exam: Present: atraumatic, normocephalic, normal inspection - ENT ENT exam: Present: normal exam - Respiratory Respiratory exam: Present: normal lung sounds bilaterally - Cardiovascular Cardiovascular Exam: Present: normal heart sounds - GI/Abdominal GI/Abdominal exam: Present: soft, normal bowel sounds. Absent: distended, tenderness, guarding, rebound, rigid - External exam: Present: other (patient refused the exam.) ED Course Vital Signs 12/13/18 13:32 Temperature 98.6 F Pulse Rate 82 Respiratory 18 Rate Blood Pressure 117/67 O2 Sat by Pulse 98 Oximetry Critical care attestation.: If time is entered above; I have spent that time in minutes in the direct care of this critically ill patient, excluding procedure time. ED Disposition Clinical Impression: , Herpes genitalia Disposition: DC-01 TO HOME OR SELFCARE Is pt being admited?: No Condition: Stable Instructions: Genital Herpes Simplex (ED) Referrals: PRIMARY CARE, [Referring] - 3-5 Days
[2018-12-13 14:04] VITALS: BP 122/66
== END 2018-12-13 14:49 | disposition home or self-care (01) ==
LOC: ED 12:25
DX: O98.311 Other infections with a predominantly sexual mode of transmission complicating pregnancy, first trimester (principal); A60.00 Herpesviral infection of urogenital system, unspecified; Z3A.01 Less than 8 weeks gestation of pregnancy
CPT/HCPCS: 99282

== ENCOUNTER 2018-12-30 17:10 | Emergency (ER) | payer SELFPAY ==
--- NOTE | 2018-12-30 18:05 | Event Note ---
ED Screening Note Date of service: 12/30/18 (n) Time: 18:00 ED Screening Note: 23 y o female with unknown dates presents with abd pain, x 3 days upper abd denies vag bleed, loc This initial assessment/diagnostic orders/clinical plan/treatment(s) is/are subject to change based on patients health status, clinical progression and re- assessment by fellow clinical providers in the ED. Further treatment and workup at subsequent clinical providers discretion. Patient/guardian urged not to elope from the ED as their condition may be serious if not clinically assessed and managed. Initial orders include: ua
[2018-12-30 19:19] LABS: Bilirubin,Urine NEG (Negative); Blood,Urine SM (Negative); Color,Urine Yellow (Yellow); Mucus,Urine 2+ /HPF; Urobilinogen,Urine < 2.0 mg/dL (<2.0)
[2018-12-30] MEDS ORDERED: ZOFRAN IV ONE (21:31)
[2018-12-30] MEDS ORDERED: NACL 0.9% 1000 ML 1,000 ML IV ONE (21:31)
[2018-12-30] MEDS ORDERED: TYLENOL PO ONE (21:31)
[2018-12-30 22:36] LABS: Basophils # (Auto) 0.1 K/mm3 (0.0-0.1); Basophils % (Auto) 0.9 % (0.0-1.8); Eosinophils # (Auto) 0.3 K/mm3 (0.0-0.4); Eosinophils % (Auto) 3.3 % (0.0-4.3); Hematocrit 29.2 % (30.3-42.9); Hemoglobin 9.3 gm/dl (10.1-14.3); Lymphocytes # (Auto) 2.3 K/mm3 (1.2-5.4); Lymphocytes % (Auto) 28.1 % (13.4-35.0); Mean Corpuscular HGB Conc 32 % (30-34); Mean Corpuscular Volume 75 fl (79-97); Monocytes # (Auto) 0.8 K/mm3 (0.0-0.8); Monocytes % (Auto) 9.8 % (0.0-7.3); Red Cell Distribution Width 17.4 % (13.2-15.2)
[2018-12-30 22:45] LABS: Platelet Count 207 K/mm3 (140-440)
[2018-12-30 22:50] LABS: Alanine Aminotransferase 12 units/L (7-56); Albumin 3.6 g/dL (3.9-5); BUN/Creatinine Ratio 26; Blood Urea Nitrogen 13 mg/dL (7-17); Calcium 8.8 mg/dL (8.4-10.2); Hemolysis Index 3
[2018-12-30] MEDS ORDERED: ROCEPHIN/NS 1 GM/50 ML 1 GM/50 ML BAG IV ONE (23:26)
--- NOTE | 2018-12-30 23:55 | Ultrasound Report ---
ULTRASOUND OBSTETRIC INDICATION / CLINICAL INFORMATION: abdominal pain. TECHNIQUE: Transabdominal. COMPARISON: OB ultrasound 12/05/2018 FINDINGS: GESTATIONAL SAC: Well-defined oval shape and intrauterine in location. YOLK SAC: No significant abnormality. EMBRYO/FETUS: No significant abnormality. - [place] Length = 2.52 cm = 9 weeks, 2 day(s). - Heart Rate, beats per minute (if present) = 174 ADNEXA: Right ovary not visualized secondary to bowel gas. Left ovary appears within normal limits wi thout cyst or mass measuring 3.7 x 1.9 x 3.2 cm. FREE FLUID: None. ADDITIONAL FINDINGS: None. IMPRESSION: 1. Single, living intrauterine with estimated sonographic age of 9 weeks, 2 day(s). Signer Name: González Jamison MD Signed: 12/30/2018 11:50 PM Workstation Name: [id number]
--- NOTE | 2018-12-31 02:23 | Emergency Department Report ---
ED Abdominal Pain HPI - General Chief Complaint: Abdominal Pain Stated Complaint: /SOB/STOMACH PAIN Time Seen by Provider: 12/30/18 18:00 Source: patient Mode of arrival: Ambulatory Limitations: No Limitations - History of Present Illness Initial Comments: Patient is a A0 23-year-old, female who is approximately 9 weeks' gestation who presents to the ED with content of acute onset of diffuse low abdominal pain with nausea and vomiting for the last 1 week, worse in the last 3 days. Patient denies vaginal bleeding, vaginal discharge, dysuria, urinary frequency and urgency, headache, chest pain, shortness of breath, diarrhea, headache, d izziness, change in vision, syncope, diarrhea, sore throat or vaginal discharge. MD Complaint: abdominal pain -: Sudden, week(s) (1) Location: suprapubic Radiation: none Migration to: no migration Severity: moderate Severity scale (0 -10): 5 Quality: cramping, aching, sharp Consistency: intermittent Improves With: nothing Worsens With: nothing Associated Symptoms: denies other symptoms, nausea, vomiting. denies: diarrhea, fever, chills, constipation, dysuria, hematemesis, melena, hematuria, anorexia, syncope, other - Related Data Home Medications Medication Instructions Recorded Confirmed Last Taken Vit37/Iron/Folic Acid 1 each PO DAILY 12/14/13 04/01/17 1 Day Ago [Prenata Chewable Tablet] ~03/31/17 Previous Rx's Medication Instructions Recorded Last Taken Type Naproxen [Naprosyn] 500 mg PO BID PRN #20 tablet 02/14/18 Unknown Rx Sulfamethoxazole/Trimethoprim 1 each PO BID #10 tablet 04/04/18 Unknown Rx [Bactrim DS TAB] metroNIDAZOLE [Metronidazole] 500 mg PO BID #14 tablet 04/04/18 Unknown Rx Acyclovir [Zovirax Tab] 400 mg PO Q8H #21 tab 11/24/18 Unknown Rx Nitrofurantoin [place]/M-Cryst 100 mg PO Q12HR #20 capsule 11/24/18 Unknown Rx [Macrobid CAP] Vit-Fe Fumar-FA [ 1 tab PO QDAY #90 tablet 11/24/18 Unknown Rx Vitamin] Acyclovir [Zovirax Tab] 400 mg PO Q8H #21 tab 12/13/18 Unknown Rx Promethazine [Phenergan] 25 mg PO Q6HR PRN #24 tab 12/31/18 Unknown Rx cephALEXin [Keflex] 500 mg PO Q8HR #30 cap 12/31/18 Unknown Rx Allergies Allergy/AdvReac Type Severity Reaction Status Date / Time tomato [Tomato] Allergy Swelling Verified 12/13/18 12:36 ED Review of Systems ROS: Stated complaint: /SOB/STOMACH PAIN Other details as noted in HPI Constitutional: denies: chills, fever Eyes: denies: eye pain, eye discharge, vision change ENT: denies: ear pain, throat pain Respiratory: denies: cough, shortness of breath, wheezing Cardiovascular: denies: chest pain, palpitations Endocrine: no symptoms reported Gastrointestinal: abdominal pain, nausea, vomiting. denies: diarrhea Genitourinary: denies: urgency, dysuria, discharge Musculoskeletal: denies: back pain, joint swelling, arthralgia Skin: denies: rash, lesions Neurological: denies: headache, weakness, paresthesias Psychiatric: denies: anxiety, depression Hematological/Lymphatic: denies: easy bleeding, easy bruising ED Past Medical Hx - Past Medical History Hx Hypertension: No Hx Congestive Heart Failure: No Hx Diabetes: No Hx Deep Vein Thrombosis: No Hx Renal Disease: No Hx Sickle Cell Disease: No Hx Seizures: No Hx Asthma: No Hx COPD: No Hx HIV: No - Surgical History Past Surgical History?: Yes Additional Surgical History: hernia repair - Social History Smoking Status: Never Smoker Substance Use Type: None - Medications Home Medications: Home Medications Medication Instructions Recorded Confirmed Last Taken Type Vit37/Iron/Folic Acid 1 each PO DAILY 12/14/13 04/01/17 1 Day Ago History [Prenata Chewable Tablet] ~03/31/17 Naproxen [Naprosyn] 500 mg PO BID PRN #20 tablet 02/14/18 Unknown Rx Sulfamethoxazole/Trimethoprim 1 each PO BID #10 tablet 04/04/18 Unknown Rx [Bactrim DS TAB] metroNIDAZOLE [Metronidazole] 500 mg PO BID #14 tablet 04/04/18 Unknown Rx Acyclovir [Zovirax Tab] 400 mg PO Q8H #21 tab 11/24/18 Unknown Rx Nitrofurantoin [place]/M-Cryst 100 mg PO Q12HR #20 capsule 11/24/18 Unknown Rx [Macrobid CAP] Vit-Fe Fumar-FA [ 1 tab PO QDAY #90 tablet 11/24/18 Unknown Rx Vitamin] Acyclovir [Zovirax Tab] 400 mg PO Q8H #21 tab 12/13/18 Unknown Rx Promethazine [Phenergan] 25 mg PO Q6HR PRN #24 tab 12/31/18 Unknown Rx cephALEXin [Keflex] 500 mg PO Q8HR #30 cap 12/31/18 Unknown Rx ED Physical Exam - General Limitations: No Limitations General appearance: alert, in no apparent distress - Head Head exam: Present: atraumatic, normocephalic, normal inspection - Eye Eye exam: Present: normal appearance, PERRL, EOMI - ENT ENT exam: Present: normal exam, normal orophraynx, mucous membranes moist, TM's normal bilaterally, normal external ear exam - Neck Neck exam: Present: normal inspection, full ROM. Absent: tenderness - Respiratory Respiratory exam: Present: normal lung sounds bilaterally. Absent: respiratory distress, wheezes, rales, rhonchi, chest wall tenderness, accessory muscle use, decreased breath sounds, prolonged expiratory - Cardiovascular Cardiovascular Exam: Present: regular rate, normal rhythm, normal heart sounds. Absent: systolic murmur, diastolic murmur, rubs, gallop - GI/Abdominal GI/Abdominal exam: Present: soft, tenderness (mildly diffuse lower abdominal tenderness, no guarding or rebound), normal bowel sounds. Absent: guarding, rebound, hyperactive bowel sounds, hypoactive bowel sounds, mass, bruit - Rectal Rectal exam: Present: deferred - Extremities Exam Extremities exam: Present: normal inspection, full ROM, normal capillary refill - Back Exam Back exam: Present: normal inspection, full ROM. Absent: tenderness, CVA tenderness (R), CVA tenderness (L), muscle spasm, paraspinal tenderness, vertebral tenderness - Neurological Exam Neurological exam: Present: alert, oriented X3, CN II-XII intact, normal gait, reflexes normal - Psychiatric Psychiatric exam: Present: normal affect, normal mood - Skin Skin exam: Present: warm, dry, intact, normal color. Absent: rash ED Course Vital Signs 12/30/18 17:59 Temperature 98.6 F Pulse Rate 100 H Respiratory 20 Rate Blood Pressure 112/61 O2 Sat by Pulse 100 Oximetry - Reevaluation(s) Reevaluation #1: 12/31/18 02:22 This is a 23-year-old female presents to the ED with diffuse lower abdominal pain for one week. In the ED, patient is alert and oriented 3 and is not in distress. Lab test results were reviewed and showed hCG Quant of [id number], urinalysis showed urinary tract infection. The rest of the laboratory results are unremarkable. Patient was to develop pain in the ED and also rec eived Rocephin 1 g IV and normal saline IV 1 L bolus. Transvaginal and pelvic ultrasound showed a single live IUP of approximately 9 weeks and 2 days with heart rate of 174 bpm. No other abnormal findings were identified. Patient was discharged to home on antibiotics for UTI and advised to follow-up with [employer] physician in 2-3 days for reevaluation or return to the ED immediately if symptoms get worse. Patient was otherwise advised to take Tylenol as needed for pain. 12/31/18 02:24 ED Medical Decision Making - Lab Data Result diagrams: 12/30/18 22:14 12/30/18 22:14 - Radiology Data Radiology results: report reviewed, image reviewed A transvaginal and pelvic ultrasound shows a single live IUP of approximately 9 weeks and 2 days with heart rate of 174 bpm. - Medical Decision Making This is a 23-year-old female presents to the ED with diffuse lower abdominal pain for one week. In the ED, patient is alert and oriented 3 and is not in distress. Lab test results were reviewed and showed hCG Quant of [id number], urinalysis showed urinary tract infection. The rest of the laboratory results are unremarkable. Patient was to develop pain in the ED and also received Rocephin 1 g IV and normal saline IV 1 L bolus. Transvaginal and pelvic ultrasound showed a single live IUP of approximately 9 weeks and 2 days with heart rate of 174 bpm. No other abnormal findings were identified. Patient was discharged to home on antibiotics for UTI and advised to follow-up with [employer] physician in 2-3 days for reevaluation or return to the ED immediately if symptoms get worse. Patient was otherwise advised to take Tylenol as needed for pain - Differential Diagnosis abdominal pain, acute UTI, Ovarian cyst Critical care attestation.: If time is entered above; I have spent that time in minutes in the direct care of this critically ill patient, excluding procedure time. ED Disposition Clinical Impression: Abdominal pain during in first trimester, Acute urinary tract infection Disposition: TO HOME OR SELFCARE Is pt being admited?: No Does the pt Need Aspirin: No Condition: Stable Instructions: Abdominal Pain (ED), Urinary Tract Infection in Women (ED) Additional Instructions: Take medication with food, drink plenty of fluids and follow-up with your primary care physician or [employer] physician in 5-7 days for reevaluation. Return to the ED immediately if symptoms get worse. Prescriptions: cephALEXin [Keflex] 500 mg PO Q8HR #30 cap Promethazine [Phenergan] 25 mg PO Q6HR PRN #24 tab PRN Reason: Nausea Referrals: BERNARDINO LU MD [Staff Physician] - 3-5 Days Time of Disposition: 02: Print Language: SINHALA
[2018-12-31 03:07] VITALS: BP 110/58
== END 2018-12-31 03:07 | disposition home or self-care (01) ==
LOC: ED 17:10
DX: O23.41 Unspecified infection of urinary tract in pregnancy, first trimester (principal); Z91.018 Allergy to other foods; Z3A.09 9 weeks gestation of pregnancy
CPT/HCPCS: 36415; 76801; 80053; 81001; 84702; 84703; 85025; J0696; J2405; J7030; 96361; 96365; 96375

== ENCOUNTER 2019-02-20 20:09 | Emergency (ER) | payer MEDICAID, OTHER ==
--- NOTE | 2019-02-20 20:39 | Emergency Department Report ---
Blank Doc - Documentation Documentation: 16 wweeks c/o of pelvic pain without bleeding or discharge. This initial assessment/diagnostic orders/clinical plan/treatment(s) is/are subject to change based on patient's health status, clinical progression and re- assessment by fellow clinical providers in the ED. Further treatment and workup at subsequent clinical providers discretion. Patient/guardians urged not to elope from the ED as their condition may be serious if not clinically assessed and managed. Initial orders include: labs, ua, us
[2019-02-20 20:42] VITALS: BP 117/61
[2019-02-20 21:36] LABS: Basophils % (Auto) 0.6 % (0.0-1.8); Eosinophils # (Auto) 0.2 K/mm3 (0.0-0.4); Eosinophils % (Auto) 1.9 % (0.0-4.3); Hematocrit 25.6 % (30.3-42.9); Hemoglobin 8.3 gm/dl (10.1-14.3); Lymphocytes # (Auto) 1.9 K/mm3 (1.2-5.4); Lymphocytes % (Auto) 22.7 % (13.4-35.0); Mean Corpuscular HGB Conc 32 % (30-34); Mean Corpuscular Volume 76 fl (79-97); Monocytes # (Auto) 0.6 K/mm3 (0.0-0.8); Monocytes % (Auto) 7.3 % (0.0-7.3); Platelet Count 179 K/mm3 (140-440); Red Blood Count 3.38 M/mm3 (3.65-5.03); Red Cell Distribution Width 16.5 % (13.2-15.2)
[2019-02-20 21:46] LABS: Bacteria,Urine 1+ /HPF (Negative); Bilirubin,Urine NEG (Negative); Blood,Urine NEG (Negative); Color,Urine Yellow (Yellow); Mucus,Urine 3+ /HPF; Urobilinogen,Urine < 2.0 mg/dL (<2.0)
--- NOTE | 2019-02-20 22:52 | Ultrasound Report ---
Limited Obstetrical Ultrasound Indication: 16 weeks with pelvic pain Shows a normal-appearing intrauterine with an estimated gestational age of 16 weeks 5 days. I do not see a significant discrepancy between head and body measurements. US dating corresponds iwona sonably well with clinical dating. No obvious anomalies are seen though this was not a full survey. Cardiac activity was noted at 152 bp m. Fetus is in a cephalic position. Placenta is anterior and free of the internal cervical os. Est imated weight is 162 g +/- 24 g. Amniotic fluid volume qualitatively appears appropriate for age. TANK measurement was 4.7 cm which is lower than the usual range but probably just relates to the early stage of . IMPRESSION: 16 week 5 day intrauterine without obvious abnormality Signer Name: Chaim Paredes MD Signed: 02/20/2019 10:48 PM Workstation Name: [id number]
--- NOTE | 2019-02-20 23:02 | Emergency Department Report ---
ED HPI - General Chief complaint: Abdominal Pain Stated complaint: 16 WEEKS PREG, ABDOMINAL PAIN Time Seen by Provider: 02/20/19 20:37 Source: patient Mode of arrival: Ambulatory Limitations: No Limitations - History of Present Illness Initial comments: 23-year-old female, , currently 16 weeks presents to ED with complaint of abdominal pain since earlier today. Patient states pain is right- sided, crampy. Denies fever, nausea, vomiting, diarrhea, urinary symptoms. Patient does have an FACTORER, but cannot remember the name at this time. 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 MD Complaint: abdominal pain -: This afternoon Location: abdomen Radiation: RUQ, RLQ Severity: mild Quality: cramping Consistency: intermittent Improves with: none Worsens with: none Associated symptoms: denies: nausea/vomiting, vaginal bleeding, dysuria Vaginal bleeding: none :: Yes Number of weeks : 16 Pre- care: followed by OB - Related Data : 5 Para: 4 Home Medications Medication Instructions Recorded Confirmed Last Taken Vit37/Iron/Folic Acid 1 each PO DAILY 12/14/13 04/01/17 1 Day Ago [Prenata Chewable Tablet] ~03/31/17 Previous Rx's Medication Instructions Recorded Last Taken Type Naproxen [Naprosyn] 500 mg PO BID PRN #20 tablet 02/14/18 Unknown Rx Sulfamethoxazole/Trimethoprim 1 each PO BID #10 tablet 04/04/18 Unknown Rx [Bactrim DS TAB] metroNIDAZOLE [Metronidazole] 500 mg PO BID #14 tablet 04/04/18 Unknown Rx Acyclovir [Zovirax Tab] 400 mg PO Q8H #21 tab 11/24/18 Unknown Rx Nitrofurantoin [place]/M-Cryst 100 mg PO Q12HR #20 capsule 11/24/18 Unknown Rx [Macrobid CAP] Vit-Fe Fumar-FA [ 1 tab PO QDAY #90 tablet 11/24/18 Unknown Rx Vitamin] Acyclovir [Zovirax Tab] 400 mg PO Q8H #21 tab 12/13/18 Unknown Rx Promethazine [Phenergan] 25 mg PO Q6HR PRN #24 tab 12/31/18 Unknown Rx cephALEXin [Keflex] 500 mg PO Q8HR #30 cap 12/31/18 Unknown Rx Allergies Allergy/AdvReac Type Severity Reaction Status Date / Time tomato [Tomato] Allergy Swelling Verified 12/13/18 12:36 ED Review of Systems ROS: Stated complaint: 16 WEEKS PREG, ABDOMINAL PAIN Other details as noted in HPI Comment: All other systems reviewed and negative Constitutional: denies: chills, fever Gastrointestinal: abdominal pain. denies: nausea, vomiting, diarrhea Genitourinary: other (denies vaginal bleeding). denies: dysuria, frequency, hematuria ED Past Medical Hx - Past Medical History Previous Medical History?: Yes Hx Hypertension: No Hx Congestive Heart Failure: No Hx Diabetes: No Hx Deep Vein Thrombosis: No Hx Renal Disease: No Hx Sickle Cell Disease: No Hx Seizures: No Hx Asthma: No Hx COPD: No Hx HIV: No - Surgical History Past Surgical History?: Yes Additional Surgical History: hernia repair - Social History Smoking Status: Never Smoker Substance Use Type: None - Medications Home Medications: Home Medications Medication Instructions Recorded Confirmed Last Taken Type Vit37/Iron/Folic Acid 1 each PO DAILY 12/14/13 04/01/17 1 Day Ago History [Prenata Chewable Tablet] ~03/31/17 Naproxen [Naprosyn] 500 mg PO BID PRN #20 tablet 02/14/18 Unknown Rx Sulfamethoxazole/Trimethoprim 1 each PO BID #10 tablet 04/04/18 Unknown Rx [Bactrim DS TAB] metroNIDAZOLE [Metronidazole] 500 mg PO BID #14 tablet 04/04/18 Unknown Rx Acyclovir [Zovirax Tab] 400 mg PO Q8H #21 tab 11/24/18 Unknown Rx Nitrofurantoin [place]/M-Cryst 100 mg PO Q12HR #20 capsule 11/24/18 Unknown Rx [Macrobid CAP] Vit-Fe Fumar-FA [ 1 tab PO QDAY #90 tablet 11/24/18 Unknown Rx Vitamin] Acyclovir [Zovirax Tab] 400 mg PO Q8H #21 tab 12/13/18 Unknown Rx Promethazine [Phenergan] 25 mg PO Q6HR PRN #24 tab 12/31/18 Unknown Rx cephALEXin [Keflex] 500 mg PO Q8HR #30 cap 12/31/18 Unknown Rx ED Physical Exam - General Limitations: No Limitations General appearance: alert, in no apparent distress - Head Head exam: Present: atraumatic, normocephalic - Eye Eye exam: Present: normal appearance - ENT ENT exam: Present: mucous membranes moist - Neck Neck exam: Present: normal inspection - Respiratory Respiratory exam: Present: normal lung sounds bilaterally. Absent: respiratory distress - Cardiovascular Cardiovascular Exam: Present: normal rhythm, tachycardia - GI/Abdominal GI/Abdominal exam: Present: soft, other (gravid abdomen). Absent: tenderness - Extremities Exam Extremities exam: Present: normal inspection - Neurological Exam Neurological exam: Present: alert, oriented X3 - Psychiatric Psychiatric exam: Present: normal affect, normal mood - Skin Skin exam: Present: warm, dry, intact, normal color. Absent: rash ED Course Vital Signs 02/20/19 02/20/19 02/21/19 20:37 23:58 00:01 Temperature 98.3 F Pulse Rate 106 H 88 88 Respiratory 18 16 Rate Blood Pressure 117/61 O2 Sat by Pulse 99 99 Oximetry ED Medical Decision Making - Lab Data Result diagrams: 02/20/19 21:00 02/20/19 21:00 - Radiology Data Radiology results: report reviewed, image reviewed - Medical Decision Making Ultrasound is unremarkable, labs are normal. Patient advised to follow-up with her FACTORER. Return precautions given. - Differential Diagnosis miscarriage, UTI, gallstones Critical care attestation.: If time is entered above; I have spent that time in minutes in the direct care of this critically ill patient, excluding procedure time. ED Disposition Clinical Impression: Abdominal pain in , 16 weeks gestation of Disposition: - TO HOME OR SELFCARE Is pt being admited?: No Condition: Stable Instructions: Abdominal Pain in (ED) Referrals: PRIMARY CARE, [Referring] - 3-5 Days Time of Disposition: 23:40
[2019-02-20 23:30] LABS: Alanine Aminotransferase 6 units/L (7-56); Albumin 3.6 g/dL (3.9-5); BUN/Creatinine Ratio 25; Blood Urea Nitrogen 10 mg/dL (7-17); Hemolysis Index 2
== END 2019-02-20 23:58 | disposition home or self-care (01) ==
LOC: ED 20:09
DX: O26.892 Other specified pregnancy related conditions, second trimester (principal); Z3A.16 16 weeks gestation of pregnancy; Z91.018 Allergy to other foods; Z79.899 Other long term (current) drug therapy
CPT/HCPCS: 36415; 76805; 80053; 81001; 84703; 85025; 99284

== ENCOUNTER 2019-03-01 14:34 | Emergency (ER) | payer OTHER ==
--- NOTE | 2019-03-01 14:39 | Emergency Department Report ---
Blank Doc - Documentation Documentation: 23-year-old female that presents with right sided pelvic pain. Deneis any vag inal bleeding. Denies any n/v. 18 weeks . This initial assessment/diagnostic orders/clinical plan/treatment(s) is/are subject to change based on patient's health status, clinical progression and re- assessment by fellow clinical providers in the ED. Further treatment and workup at subsequent clinical providers discretion. Patient/guardians urged not to elope from the ED as their condition may be serious if not clinically assessed and managed. Initial orders include: 1- Patient sent to [facility] for further evaluation and treatment 2- labs 3- UA 4- US OB
--- NOTE | 2019-03-01 15:46 | Ultrasound Report ---
Limited OB Ultrasound HISTORY: pelvic pain. Acute generalized pelvic pain TECHNIQUE: Grayscale and color Doppler imaging performed. COMPARISON: OB ultrasound from 02/20/2019 FINDINGS: There is a single intrauterine gestation which is cephalic in presentation. Heart rate is 1 45 bpm. Placenta is seen posteriorly. Estimated gestational age is 18 weeks and 0 days by evaluating biparietal diameter, head circumference, abdominal circumference, and femoral length. Cervix measures 4.1 cm which is normal. Limited anatomic survey was unremarkable. There are fluid pockets greater th an 2 cm. Nothing acute identified. IMPRESSION: Single viable intrauterine gestation as above. Signer Name: Akbar Booker MD Signed: 03/01/2019 3:42 PM Workstation Name: [id number]
[2019-03-01 15:53] LABS: Basophils % (Auto) 0.4 % (0.0-1.8); Eosinophils # (Auto) 0.2 K/mm3 (0.0-0.4); Eosinophils % (Auto) 2.7 % (0.0-4.3); Hematocrit 25.9 % (30.3-42.9); Hemoglobin 8.3 gm/dl (10.1-14.3); Lymphocytes # (Auto) 1.8 K/mm3 (1.2-5.4); Mean Corpuscular HGB Conc 32 % (30-34); Mean Corpuscular Volume 77 fl (79-97); Monocytes # (Auto) 0.6 K/mm3 (0.0-0.8); Platelet Count 183 K/mm3 (140-440); Red Blood Count 3.36 M/mm3 (3.65-5.03); Red Cell Distribution Width 16.4 % (13.2-15.2)
[2019-03-01 15:55] LABS: Bilirubin,Urine NEG (Negative); Blood,Urine SM (Negative); Color,Urine Yellow (Yellow); Mucus,Urine FEW /HPF; Protein,Urine <15 mg/dL mg/dL (Negative); Urobilinogen,Urine < 2.0 mg/dL (<2.0)
[2019-03-01 16:12] LABS: BUN/Creatinine Ratio 18; Blood Urea Nitrogen 7 mg/dL (7-17); Calcium 8.7 mg/dL (8.4-10.2); Hemolysis Index 3
--- NOTE | 2019-03-01 16:53 | Emergency Department Report ---
ED HPI - General Chief complaint: Abdominal Pain Stated complaint: 18WKS PREG/ABD PAIN Time Seen by Provider: 03/01/19 14:39 Source: patient Mode of arrival: Ambulatory Limitations: No Limitations - History of Present Illness Initial comments: This is a 23-year-old who presents to ED at 18 weeks gestation complaining of right-sided lower abdominal pain that started this morning. Patient states she received care from primary [employer] and has a next appointment on 03/16/2019. Patient states she was at home when pain began. She describes pain as intermittent aching type pain. Patient denies any fever, dysuria, vaginal bleeding, vaginal discharge, nausea vomiting or any other complaints. - Related Data Home Medications Medication Instructions Recorded Confirmed Last Taken Vit37/Iron/Folic Acid 1 each PO DAILY 12/14/13 04/01/17 1 Day Ago [Prenata Chewable Tablet] ~03/31/17 Previous Rx's Medication Instructions Recorded Last Taken Type Naproxen [Naprosyn] 500 mg PO BID PRN #20 tablet 02/14/18 Unknown Rx Sulfamethoxazole/Trimethoprim 1 each PO BID #10 tablet 04/04/18 Unknown Rx [Bactrim DS TAB] metroNIDAZOLE [Metronidazole] 500 mg PO BID #14 tablet 04/04/18 Unknown Rx Acyclovir [Zovirax Tab] 400 mg PO Q8H #21 tab 11/24/18 Unknown Rx Nitrofurantoin Sanders/M-Cryst 100 mg PO Q12HR #20 capsule 11/24/18 Unknown Rx [Macrobid CAP] Vit-Fe Fumar-FA [ 1 tab PO QDAY #90 tablet 11/24/18 Unknown Rx Vitamin] Acyclovir [Zovirax Tab] 400 mg PO Q8H #21 tab 12/13/18 Unknown Rx Promethazine [Phenergan] 25 mg PO Q6HR PRN #24 tab 12/31/18 Unknown Rx cephALEXin [Keflex] 500 mg PO Q8HR #30 cap 12/31/18 Unknown Rx Allergies Allergy/AdvReac Type Severity Reaction Status Date / Time tomato [Tomato] Allergy Swelling Verified 12/13/18 12:36 ED Review of Systems ROS: Stated complaint: 18WKS PREG/ABD PAIN Other details as noted in HPI Comment: All other systems reviewed and negative ED Past Medical Hx - Past Medical History Hx Hypertension: No Hx Congestive Heart Failure: No Hx Diabetes: No Hx Deep Vein Thrombosis: No Hx Renal Disease: No Hx Sickle Cell Disease: No Hx Seizures: No Hx Asthma: No Hx COPD: No Hx HIV: No - Surgical History Additional Surgical History: hernia repair - Social History Smoking Status: Never Smoker Substance Use Type: None - Medications Home Medications: Home Medications Medication Instructions Recorded Confirmed Last Taken Type Vit37/Iron/Folic Acid 1 each PO DAILY 12/14/13 04/01/17 1 Day Ago History [Prenata Chewable Tablet] ~03/31/17 Naproxen [Naprosyn] 500 mg PO BID PRN #20 tablet 02/14/18 Unknown Rx Sulfamethoxazole/Trimethoprim 1 each PO BID #10 tablet 04/04/18 Unknown Rx [Bactrim DS TAB] metroNIDAZOLE [Metronidazole] 500 mg PO BID #14 tablet 04/04/18 Unknown Rx Acyclovir [Zovirax Tab] 400 mg PO Q8H #21 tab 11/24/18 Unknown Rx Nitrofurantoin Sanders/M-Cryst 100 mg PO Q12HR #20 capsule 11/24/18 Unknown Rx [Macrobid CAP] Vit-Fe Fumar-FA [ 1 tab PO QDAY #90 tablet 11/24/18 Unknown Rx Vitamin] Acyclovir [Zovirax Tab] 400 mg PO Q8H #21 tab 12/13/18 Unknown Rx Promethazine [Phenergan] 25 mg PO Q6HR PRN #24 tab 12/31/18 Unknown Rx cephALEXin [Keflex] 500 mg PO Q8HR #30 cap 12/31/18 Unknown Rx ED Physical Exam - General Limitations: No Limitations General appearance: alert, in no apparent distress - Head Head exam: Present: atraumatic, normocephalic - Eye Eye exam: Present: normal appearance - ENT ENT exam: Present: mucous membranes moist - Neck Neck exam: Present: normal inspection - Respiratory Respiratory exam: Present: normal lung sounds bilaterally. Absent: respiratory distress - Cardiovascular Cardiovascular Exam: Present: regular rate, normal rhythm. Absent: systolic murmur, diastolic murmur, rubs, gallop - GI/Abdominal GI/Abdominal exam: Present: soft, normal bowel sounds, other (gravid abdomen). Absent: tenderness, guarding - Extremities Exam Extremities exam: Present: normal inspection - Back Exam Back exam: Present: normal inspection - Neurological Exam Neurological exam: Present: alert, oriented X3 - Psychiatric Psychiatric exam: Present: normal affect, normal mood - Skin Skin exam: Present: warm, dry, intact, normal color. Absent: rash ED Medical Decision Making - Lab Data Result diagrams: 03/01/19 15:19 03/01/19 15:19 Laboratory Last Values WBC 6.3 K/mm3 (4.5-11.0) 03/01/19 15:19 RBC 3.36 M/mm3 (3.65-5.03) L 03/01/19 15:19 Hgb 8.3 gm/dl (10.1-14.3) L 03/01/19 15:19 Hct 25.9 % (30.3-42.9) L 03/01/19 15:19 MCV 77 fl (79-97) L 03/01/19 15:19 MCH 25 pg (28-32) L 03/01/19 15:19 MCHC 32 % (30-34) 03/01/19 15: RDW 16.4 % (13.2-15.2) H 03/01/19 15:19 Plt Count 183 K/mm3 (140-440) 03/01/19 15:19 Lymph % (Auto) 28.0 % (13.4-35.0) 03/01/19 15:19 Sanders % (Auto) 9.0 % (0.0-7.3) H 03/01/19 15:19 Eos % (Auto) 2.7 % (0.0-4.3) 03/01/19 15:19 Baso % (Auto) 0.4 % (0.0-1.8) 03/01/19 15:19 Lymph # 1.8 K/mm3 (1.2-5.4) 03/01/19 15:19 Sanders # 0.6 K/mm3 (0.0-0.8) 03/01/19 15:19 Eos # 0.2 K/mm3 (0.0-0.4) 03/01/19 15:19 Baso # 0.0 K/mm3 (0.0-0.1) 03/01/19 15:19 Seg Neutrophils % 59.9 % (40.0-70.0) 03/01/19 15:19 Seg Neutrophils # 3.8 K/mm3 (1.8-7.7) 03/01/19 15:19 Sodium 134 mmol/L (137-145) L 03/01/19 15:19 Potassium 3.4 mmol/L (3.6-5.0) L 03/01/19 15:19 Chloride 101.7 mmol/L (98-107) 03/01/19 15:19 Carbon Dioxide 21 mmol/L (22-30) L 03/01/19 15:19 Anion Gap 15 mmol/L 03/01/19 15:19 BUN 7 mg/dL (7-17) 03/01/19 15:19 Creatinine 0.4 mg/dL (0.7-1.2) L 03/01/19 15:19 Estimated GFR > 60 ml/min 03/01/19 15:19 BUN/Creatinine Ratio 18 % 03/01/19 15:19 Glucose 78 mg/dL (65-100) 03/01/19 15:19 Calcium 8.7 mg/dL (8.4-10.2) 03/01/19 15:19 Urine Color Yellow (Yellow) 03/01/19 15:39 Urine Turbidity Slightly-cloudy (Clear) 03/01/19 15:39 Urine pH 8.0 (5.0-7.0) H 03/01/19 15:39 Ur Specific [place] 1.014 (1.003-1.030) 03/01/19 15:39 Urine Protein <15 mg/dl mg/dL (Negative) 03/01/19 15:39 Urine Glucose (UA) Neg mg/dL (Negative) 03/01/19 15:39 Urine Ketones Neg mg/dL (Negative) 03/01/19 15:39 Urine Blood Sm (Negative) 03/01/19 15:39 Urine Nitrite Neg (Negative) 03/01/19 15:39 Urine Bilirubin Neg (Negative) 03/01/19 15:39 Urine Urobilinogen < 2.0 mg/dL (<2.0) 03/01/19 15:39 Ur Leukocyte Esterase Tr (Negative) 03/01/19 15:39 Urine WBC (Auto) 2.0 /HPF (0.0-6.0) 03/01/19 15:39 Urine RBC (Auto) 3.0 /HPF (0.0-6.0) 03/01/19 15:39 U Epithel Cells (Auto) 13.0 /HPF (0-13.0) 03/01/19 15:39 Urine Mucus Few /HPF 03/01/19 15:39 - Radiology Data Radiology results: report reviewed, image reviewed Limited OB Ultrasound HISTORY: pelvic pain. Acute generalized pelvic pain TECHNIQUE: Grayscale and color Doppler imaging performed. COMPARISON: OB ultrasound from 02/20/2019 FINDINGS: There is a single intrauterine gestation which is cephalic in presentation. Heart rate is 145 bpm. Placenta is seen posteriorly. Estimated gestational age is 18 weeks and 0 days by nathan luating biparietal diameter, head circumference, abdominal circumference, and femoral length. Cervix measures 4.1 cm which is normal. Limited anatomic survey was unremarkable. There are fluid pockets greater than 2 cm. Nothing acute identified. IMPRESSION: Single viable intrauterine gestation as above. Signer Name: Akbar Booker MD Signed: 03/01/2019 3:42 PM Workstation Name: [id number] Transcribed By: JW Dictated By: Akbar Booker MD Electronically Authenticated By: Akbar Booker MD Signed Date/Time: 03/01/19 1542 - Medical Decision Making 23-year-old female presents with abdominal pain in All labs are within normal limits. Patient received ultrasound in the ED that was normal. See report abo ve. Discussed the patient and take Tylenol as needed for pain Discussed with the patient if any new symptoms or worsening of symptoms to return to the ED otherwise follow-up with her [employer]. At this time patient's abdomen was nontender upon examination. Vital signs are normal she is in no acute distress patient received Tylenol for pain while in the ED Critical care attestation.: If time is entered above; I have spent that time in minutes in the direct care of this critically ill patient, excluding procedure time. ED Disposition Clinical Impression: Abdominal pain during Disposition: DC-01 TO HOME OR SELFCARE Is pt being admited?: No Does the pt Need Aspirin: No Condition: Stable Instructions: Abdominal Pain (ED) Additional Instructions: Make sure to follow up with the primary care physician as discussed. Take Tylenol [id number] for pain every 6 hours Make sure that you follow-up with her [employer] WORKER in 2-3 days. If you have any worsening symptoms or develop new symptoms please return to ED immediately. Referrals: [facility] [facility] [Provider Group] - 3-5 Days [facility] [Provider Group] - 3-5 Days Forms: Accompanied Note, Work/School Release Form(ED) Time of Disposition: 17:23
[2019-03-01] MEDS ORDERED: ACETAMINOPHEN 325 MG TAB PO ONE (16:55)
[2019-03-01 17:34] VITALS: BP 180/63
== END 2019-03-01 17:38 | disposition home or self-care (01) ==
LOC: ED 14:34
DX: O26.892 Other specified pregnancy related conditions, second trimester (principal); R10.30 Lower abdominal pain, unspecified; Z3A.18 18 weeks gestation of pregnancy
CPT/HCPCS: 36415; 76805; 80048; 81001; 84702; 85025

== ENCOUNTER 2019-11-17 11:26 | Emergency (ER) | payer OTHER ==
--- NOTE | 2019-11-17 12:00 | Event Note ---
ED Screening Note ED Screening Note: abd pain suprapubic concerned preg nad vss This initial assessment/diagnostic orders/clinical plan/treatment(s) is/are subject to change based on patients health status, clinical progression and re- assessment by fellow clinical providers in the ED. Further treatment and workup at subsequent clinical providers discretion. Patient/guardian urged not to elope from the ED as their condition may be serious if not clinically assessed and managed. Initial orders include: urine ro preg additional orders pending urine results
[2019-11-17 16:11] LABS: Bacteria,Urine 1+ /HPF (Negative); Bilirubin,Urine NEG (Negative); Blood,Urine NEG (Negative); Color,Urine Yellow (Yellow); Mucus,Urine 2+ /HPF; Protein,Urine <15 mg/dL mg/dL (Negative); Urobilinogen,Urine < 2.0 mg/dL (<2.0)
[2019-11-17 16:19] LABS: HCG Qualitative,Urine Positive (Negative)
== END 2019-11-17 17:15 | disposition left against medical advice (07) ==
LOC: ED 11:26
DX: R10.84 Generalized abdominal pain (principal); Z53.21 Procedure and treatment not carried out due to patient leaving prior to being seen by health care provider
CPT/HCPCS: 81001; 81025

== ENCOUNTER 2020-01-13 14:35 | Emergency (ER) | payer OTHER ==
[2020-01-13 15:12] VITALS: BP 110/65
--- NOTE | 2020-01-13 15:22 | Emergency Department Report ---
Blank Doc - Documentation Documentation: 24-year-old female that presents with chest pain and SOB. Stated is 13 weeks and was sent by OBGYN. This initial assessment/diagnostic orders/clinical plan/treatment(s) is/are subject to change based on patient's health status, clinical progression and re- assessment by fellow clinical providers in the ED. Further treatment and workup at subsequent clinical providers discretion. Patient/guardians urged not to elope from the ED as their condition may be serious if not clinically assessed and managed. Initial orders include: 1- Patient sent to MAIN ED for further evaluation and treatment 2- cardiac workup
[2020-01-13 16:37] LABS: Basophils # (Auto) 0.1 K/mm3 (0.0-0.1); Basophils % (Auto) 0.8 % (0.0-1.8); Eosinophils # (Auto) 0.2 K/mm3 (0.0-0.4); Eosinophils % (Auto) 2.8 % (0.0-4.3); Hematocrit 30.3 % (30.3-42.9); Hemoglobin 10.1 gm/dl (10.1-14.3); Lymphocytes % (Auto) 27.3 % (13.4-35.0); Mean Corpuscular HGB Conc 33 % (30-34); Mean Corpuscular Volume 76 fl (79-97); Monocytes # (Auto) 0.7 K/mm3 (0.0-0.8); Monocytes % (Auto) 9.5 % (0.0-7.3); Platelet Count 184 K/mm3 (140-440); Red Blood Count 3.99 M/mm3 (3.65-5.03); Red Cell Distribution Width 17.2 % (13.2-15.2)
[2020-01-13 16:54] LABS: INR 0.98 (0.87-1.13); Partial Thromboplastin Time 26.3 Sec. (24.2-36.6)
[2020-01-13 16:59] LABS: Bilirubin,Urine NEG (Negative); Blood,Urine NEG (Negative); Color,Urine Yellow (Yellow); Mucus,Urine 3+ /HPF; Urobilinogen,Urine < 2.0 mg/dL (<2.0)
[2020-01-13 17:05] LABS: Alanine Aminotransferase 10 units/L (7-56); Albumin 3.8 g/dL (3.9-5); Blood Urea Nitrogen 10 mg/dL (7-17); Calcium 9.4 mg/dL (8.4-10.2); Hemolysis Index 0
[2020-01-13 17:25] LABS: BUN/Creatinine Ratio 25
== END 2020-01-13 16:30 | disposition left against medical advice (07) ==
LOC: ED 14:35
DX: O26.891 Other specified pregnancy related conditions, first trimester (principal); R07.89 Other chest pain; Z53.21 Procedure and treatment not carried out due to patient leaving prior to being seen by health care provider; Z3A.13 13 weeks gestation of pregnancy
CPT/HCPCS: 36415; 80053; 81001; 84484; 85025; 85610; 85730; 87086; 93005

== ENCOUNTER 2020-06-16 15:23 | Outpatient (CLI) | payer OTHER ==
[2020-06-16 15:44] VITALS: BP 117/61
[2020-06-16] MEDS ORDERED: LACTATED RINGERS 500 ML IV ONE ×2 (15:50→16:36)
[2020-06-16 16:25] LABS: Bilirubin,Urine NEG (Negative); Blood,Urine SM (Negative); Color,Urine Yellow (Yellow); Mucus,Urine FEW /HPF; Urobilinogen,Urine < 2.0 mg/dL (<2.0)
== END 2020-06-16 18:30 | disposition home or self-care (01) ==
LOC: TRG 15:23 → APU 15:25 → TRG 18:30
PROVIDERS: ATTEND Obstetrics & Gynecology
DX: O26.893 Other specified pregnancy related conditions, third trimester (principal); Z3A.37 37 weeks gestation of pregnancy
CPT/HCPCS: 36415; 59025; 81001; 84112

== ENCOUNTER 2020-07-18 14:30 | Outpatient (CLI) | payer OTHER ==
[2020-07-18 14:52] VITALS: BP 122/60
--- NOTE | 2020-07-18 17:00 | Ultrasound Report ---
ULTRASOUND OBSTETRIC COMPLETE INDICATION / CLINICAL INFORMATION: bpp. Clinical Gestational Age (GA) in weeks.days: 39.6 TECHNIQUE: Transabdominal. COMPARISON: None available. FINDINGS: NUMBER: Single PRESENTATION: cephalic PLACENTA: anterior and free of the os. MATERNAL ADNEXA: No significant abnormality. AMNIOTIC FLUID VOLUME: normal AMNIOTIC FLUID INDEX (TANK) in cm (if measured): 9.7 ANATOMY: Limited evaluation of the anatomy is unremarkable.. MEASUREMENTS: - Biparietal Diameter = 9.2 cm = 37.1 weeks.days - Head Circumference = 33.4 cm = 38.1 weeks.days - Abdominal Circumference = 35.9 cm = 39.6 weeks.days - Femur Length = 7.5 cm = 38.1 weeks.days - Estimated Weight (in grams, if calculated): 3637 - Heart Rate (beats per minute): 155 ADDITIONAL FINDINGS: None. PERCENTILE ESTIMATED WEIGHT (if calculated): 55 AVERAGE ULTRASOUND AGE (AUA) in weeks.days = 38.2 IMPRESSION: 1. Single intrauterine with AUA of 38.2 weeks.days 2. No significant sonographic abnormality. BIOPHYSICAL PROFILE HISTORY: Evaluate well-being. FINDINGS: Biophysical profile is normal at 8/8. Signer Name: Yinka Lopez MD Signed: 07/18/2020 4:56 PM Workstation Name: [email or web address]
== END 2020-07-18 16:45 | disposition home or self-care (01) ==
LOC: TRG 14:30 → APU 14:31 → TRG 16:45
PROVIDERS: ATTEND Obstetrics & Gynecology
DX: Z34.93 Encounter for supervision of normal pregnancy, unspecified, third trimester (principal); Z3A.39 39 weeks gestation of pregnancy
CPT/HCPCS: 59025; 76805; 76819